=== PATIENT | female | born 1980 | race African-American/Black ===

== ENCOUNTER → 2025-06-09 12:48 | Outpatient (BNVA) | payer OTHER, SELFPAY | PROVIDERS: Visit Provider Physician Assistant Medical | DX: Z53.21 Procedure and treatment not carried out due to patient leaving prior to being seen by health care provider (principal); S30.1XXA Contusion of abdominal wall, initial encounter; S39.012A Strain of muscle, fascia and tendon of lower back, initial encounter; W03.XXXA Other fall on same level due to collision with another person, initial encounter; F13.280 Sedative, hypnotic or anxiolytic dependence with sedative, hypnotic or anxiolytic-induced anxiety disorder; R53.83 Other fatigue; T42.6X5A Adverse effect of other antiepileptic and sedative-hypnotic drugs, initial encounter; Y92.538 Other ambulatory health services establishments as the place of occurrence of the external cause | CPT/HCPCS: 99203 ==